=== PATIENT | female | born 1990 | race African-American/Black ===

== ENCOUNTER → 2017-10-31 | Outpatient (CLI) | payer BC ==
[2015-11-19 22:43] VITALS: BP 139/86
[~2017-10-31] MED LIST: CONTRAST GIVEN MC PRN; IOHEXOL 240 MG/ML 50ML VIAL. PO ONE; IOHEXOL 300 MG/ML 100ML VIAL. IV ONE
--- NOTE | 2017-10-31 10:32 | RAD ---
Indication: Menorrhagia. Axial imaging through the pelvis was performed after the administration of intravenous contrast. Comparison is made with prior CT from 11/19/2015. The small and large bowel loops in the pelvis are unremarkable. Bladder is decompressed. Uterus is grossly unremarkable. There appear to be low densities within both ovaries suggestive of cysts. On the right this measures 1.5 cm and on the left 1.9 cm. No free fluid is seen. No inguinal or iliac lymphadenopathy is seen. Impression: Probable small bilateral ovarian cysts. This could be further assessed on pelvic sonography. The study is otherwise unremarkable. PQRS Compliance Statement: One or more of the following individualized dose reduction techniques were utilized for this examination: 1. Automated exposure control 2. Adjustment of the mA and/or kV according to patient size 3. Use of iterative reconstruction technique
== END | disposition home or self-care (01) ==
LOC: CT 08:32
DX: N92.0 Excessive and frequent menstruation with regular cycle (principal)
CPT/HCPCS: 74170; Q9966; Q9967

== ENCOUNTER 2018-02-23 19:17 | Emergency (ER) | payer BC ==
[2018-02-23 19:38] LABS: URINE HCG POC HCG NEGATIVE (Negative)
[2018-02-23 20:19] LABS: ADD MAN DIFF? NO
[2018-02-23 20:24] LABS: BASO % 1 % (0-3); EOS # 0.1 x10^3/uL (0.0-0.7); EOS % 1 % (0-3); HEMATOCRIT 41.4 % (36.0-47.0); HEMOGLOBIN 13.7 g/dL (12.0-15.5); LYMPH # 2.1 x10^3/uL (1.0-4.8); LYMPH % 25 % (24-48); MEAN CORPUSCULAR HEMOGLOBIN 29 pg (25-35); MEAN CORPUSCULAR HGB CONC 33 g/dL (31-37); MEAN CORPUSCULAR VOLUME 86 fL (79-100); MONO # 0.5 x10^3/uL (0.0-1.1); MONO % 6 % (0-9); NEUT # 5.7 x10^3uL (1.8-7.7); NEUT % 67 % (31-73); PLATELET COUNT 282 x10^3/uL (140-400); RED CELL DISTRIBUTION WIDTH 14.1 % (11.5-14.5); WHITE BLOOD COUNT 8.4 x10^3/uL (4.0-11.0)
[2018-02-23] MEDS: MAG HYDROX/ALUMINUM HYD/SIMETH 30 ML ORAL.SUSP PO (20:34)
[2018-02-23 20:35] LABS: ANION GAP 12 (6-14); BLOOD UREA NITROGEN 15 mg/dL (7-20); BUN/CREATININE RATIO 19 (6-20); CALCIUM 8.9 mg/dL (8.5-10.1); CARBON DIOXIDE 24 mmol/L (21-32); CHLORIDE 104 mmol/L (98-107); CREATININE 0.8 mg/dL (0.6-1.0); GFR 105.8; GLUCOSE 96 mg/dL (70-99); SODIUM 140 mmol/L (136-145)
[2018-02-23 20:44] LABS: ALBUMIN 3.6 g/dL (3.4-5.0); ALBUMIN/GLOBULIN RATIO 0.8 (1.0-1.7); ALK PHOS 56 U/L (46-116); ALT (SGPT) 32 U/L (14-59); AST (SGOT) 31 U/L (15-37); LIPASE 272 U/L (73-393); TOTAL BILIRUBIN 0.3 mg/dL (0.2-1.0); TOTAL PROTEIN 7.9 g/dL (6.4-8.2)
[2018-02-23] MEDS: LIDO:MAALOX:DONNATAL 1:1:1 15 ML SINGLE DOSE SWSW (22:35)
== END 2018-02-23 22:40 | disposition home or self-care (01) ==
LOC: ER 19:17
DX: R10.13 Epigastric pain (principal); K21.9 Gastro-esophageal reflux disease without esophagitis; G89.29 Other chronic pain; Z87.442 Personal history of urinary calculi; Z87.440 Personal history of urinary (tract) infections
CPT/HCPCS: 36415; 80053; 81025; 83690; 85025; 99284

== ENCOUNTER → 2018-05-22 | Outpatient (CLI) | payer OTHER | END | disposition home or self-care (01) | LOC: KCIC US 07:52 | DX: K76.0 Fatty (change of) liver, not elsewhere classified (principal); K21.9 Gastro-esophageal reflux disease without esophagitis; Z87.442 Personal history of urinary calculi | CPT/HCPCS: 76705 ==

== ENCOUNTER → 2018-06-13 | Outpatient (CLI) | payer OTHER ==
[2018-06-13] MEDS: SINCALIDE 2 MCG in IV NORMAL SALINE 50ML 30 ML IV (10:18)
== END | disposition home or self-care (01) ==
LOC: NM 09:51
DX: R10.13 Epigastric pain (principal)
CPT/HCPCS: 78226; 96374; 96375; A9537; J2805

== ENCOUNTER 2019-10-27 15:37 | Emergency (ER) | payer BC, OTHER ==
[~2019-10-27] VITALS: Ht 172.7 cm; Wt 104.3 kg
[~2019-10-27 15:37] MED LIST changes: -CONTRAST GIVEN MC PRN; +HYDR-3164 PO; -IOHEXOL 240 MG/ML 50ML VIAL. PO ONE; -IOHEXOL 300 MG/ML 100ML VIAL. IV ONE; +lidocaine; +lidocaine viscous PO
[2019-10-27] MEDS ORDERED: diphenhydrAMINE 50 MG/ML VIAL IVP STA (16:36)
[2019-10-27] MEDS ORDERED: KETOROLAC 15 MG/ML VIAL. IV STA (16:36)
[2019-10-27] MEDS ORDERED: LIDOCAINE 2% 20 ML VIAL. IJ STA (16:36)
--- NOTE | 2019-10-27 16:41 | PHYS DOC ---
Past Medical History Past Medical History: GERD, Kidney Stone, UTI, Other Additional Past Medical Histor: chronic left neck and arm pain- muscles spasms Past Surgical History: Other Additional Past Surgical Histo: knee repair x5 Alcohol Use: None Drug Use: None Adult General Chief Complaint Chief Complaint: HEADACHE HPI HPI Patient is a 29 year old female who presents with headache this been ongoing for last several days. The headache has associated symptoms include nausea, light sensitivity, noise sensitivity she also states she's been having little bit of left-sided numbness on her face. Rates the numbness started 2 days ago. She rates her pain a 7 out of 10 in severity and sharp. Review of Systems Review of Systems Constitutional: Denies fever or chills [] Eyes: Reports light and noise sensitivity. Denies change in visual acuity, redn ess, or eye pain [] HENT: Denies nasal congestion or sore throat [] Respiratory: Denies cough or shortness of breath [] Cardiovascular: No additional information not addressed in HPI [] GI: Reports nausea. Denies abdominal pain, vomiting, bloody stools or diarrhea [] : Denies dysuria or hematuria [] Musculoskeletal: Denies back pain or joint pain [] Integument: Denies rash or skin lesions [] Neurologic: Reports headache, focal weakness or sensory changes [] Endocrine: Denies polyuria or polydipsia [] Complete systems were reviewed and found to be within normal limits, except as documented in this note. Current Medications Current Medications Current Medications Medications (Trade) Dose Ordered Sig/Justo Start Time Stop Time Status Last Admin Dose Admin Diphenhydramine HCl (Benadryl) 50 mg 1X STAT 10/27/19 16:36 10/27/19 16:39 DC 10/27/19 16:56 50 MG Ketorolac Tromethamine (Toradol 15mg Vial) 10 mg 1X STAT 10/27/19 16:36 10/27/19 16:39 DC 10/27/19 16:56 10 MG Lidocaine HCl 20 ml 1X STAT 10/27/19 16:36 10/27/19 16:39 DC 10/27/19 16:57 20 ML Prochlorperazine Edisylate (Compazine) 10 mg 1X ONCE 10/27/19 16:45 10/27/19 16:46 DC 10/27/19 16:56 10 MG Sodium Chloride 1,000 ml @ 1,000 mls/hr 1X ONCE 10/27/19 16:45 10/27/19 17:44 10/27/19 16:55 1,000 MLS/HR Allergies Allergies Allergies Coded Allergies Type Severity Reaction Last Updated Verified No Known Drug Allergies 11/07/13 No Physical Exam Physical Exam Constitutional: Well developed, well nourished, no acute distress, non-toxic appearance. [] HENT: Normocephalic, atraumatic, bilateral external ears normal, oropharynx luci st, no oral exudates, nose normal. [] Eyes: PERRLA, EOMI, conjunctiva normal, no discharge. [] Neck: Normal range of motion, no tenderness, supple, no stridor. [] Cardiovascular:Heart rate regular rhythm, no murmur [] Lungs & Thorax: Bilateral breath sounds clear to auscultation [] Skin: Warm, dry, no erythema, no rash. [] Neurologic: Alert and oriented X 3, normal motor function, normal sensory function, no focal deficits noted. [] Psychologic: Affect normal, judgement normal, mood normal. [] Current Patient Data Vital Signs Vital Signs Date Time Temp Pulse Resp B/P (MAP) Pulse Ox O2 Delivery O2 Flow Rate FiO2 10/27/19 16:45 65 99 10/27/19 16:06 98.9 16 130/88 (102) Room Air 98.9 EKG EKG [] Radiology/Procedures Radiology/Procedures [] Course & Med Decision Making Course & Med Decision Making Pertinent Labs and Imaging studies reviewed. (See chart for details) Will give Intranasal lidocaine, compazine, benadryl, and toradol. Will see if symptoms improve. Symptoms have improved with treatment down to a 10. Will d/c home. Recommended to go see a neurologist. Will also write a script for fioricet. Krystalon Disclaimer Dragon Disclaimer This electronic medical record was generated, in whole or in part, using a voice recognition dictation system. Departure Departure Impression: Primary Impression: Migraine Disposition: HOME, SELF-CARE Condition: STABLE Referrals: JACI LARSON (PCP) Patient Instructions: Migraine Headache Additional Instructions: Thank you for visiting [facility]. We appreciate you trusting us with your care. If any additional problems come up don't hesitate to return to visit us. Please follow up with your primary care provider so they can plan additional care if needed and know about the problem that you had. If symptoms worsen come back to the Emergency Department. Any concerning symptoms that start such as chest pain, shortness of air, weakness or numbness on one side of the body, running high fevers or any other concerning symptoms return to the ER. Scripts Butalbital/Aspirin/Caffeine ([id number] 50-325-40) 1 Each Tablet 1 TAB PO PRN DAILY PRN for headache MDD 1 Tablet(s) for 15 Days, #15 TAB 0 Refills Prov: KIANA BEAUCHAMP APRN 10/27/19 Problem Qualifiers Primary Impression: Migraine Migraine type: with aura Status migrainosus presence: without status migrainosus Intractability: not intractable Qualified Codes: G43.109 - Migraine with aura, not intractable, without status migrainosus KIANA BEAUCHAMP APRN Oct 27, 2019 16:41
[2019-10-27] MEDS ORDERED: IV NORMAL SALINE 1000ML BAG 1,000 ML IV ONE (16:45)
[2019-10-27] MEDS ORDERED: PROCHLORPERAZINE 10 MG/2 ML VIAL. IV ONE (16:45)
[2019-10-27] MEDS ORDERED: BUTALB/APAP/CAFEIN 50/325/40MG TABLET. PO STA (17:40)
[2019-10-27] MEDS ORDERED: BUTA-177 PO (17:41)
[2019-10-27 17:43] VITALS: BP 141/94
== END 2019-10-27 17:48 | disposition home or self-care (01) ==
LOC: ER 15:37
DX: G43.109 Migraine with aura, not intractable, without status migrainosus (principal); K21.9 Gastro-esophageal reflux disease without esophagitis; G89.29 Other chronic pain; N39.0 Urinary tract infection, site not specified; Z98.890 Other specified postprocedural states; Z87.442 Personal history of urinary calculi; Z79.899 Other long term (current) drug therapy
CPT/HCPCS: 96372; 96374; 96375; 99284; J0780; J1200; J1885; J2001; J7030

== ENCOUNTER 2019-12-16 17:58 | Emergency (ER) | payer BC ==
[~2019-12-16] VITALS: Ht 170.2 cm; Wt 102.2 kg
[~2019-12-16 17:58] MED LIST changes: +BUTA-177 PO
--- NOTE | 2019-12-16 18:45 | PHYS DOC ---
Past Medical History Past Medical History: GERD, Kidney Stone, UTI, Other Additional Past Medical Histor: chronic left neck and arm pain- muscles spasms Past Surgical History: Other Additional Past Surgical Histo: knee repair x5 Smoking Status: Never Smoker Alcohol Use: None Drug Use: None Adult General Chief Complaint Chief Complaint: ABDOMINAL PAIN HPI HPI 29-year-old female presents to the emergency Department complaints of left upper quadrant pain, she states radiates to her back. This has been ongoing off and on times one month. She was recently treated with antibiotic therapy for urinary tract infection, Escherichia coli states she's been off abx for approximately 1- 2 weeks. She does describe some nausea as well as vomiting. Decreased oral intake. Pain is described as achy sensation. She thinks that it may worsen with by mouth intake however unsure. Patient denies chest pain, headache, SOB on exam. Review of Systems Review of Systems Constitutional: chills Respiratory: Denies cough or shortness of breath [] Cardiovascular: No additional information not addressed in HPI [] GI: LUQ pain, nausea, vomiting, no bloody stools or diarrhea [] : Denies dysuria or hematuria [] Musculoskeletal: radiation of luq pain to back Integument: Denies rash or skin lesions [] Neurologic: Denies headache, focal weakness or sensory changes [] All other systems were reviewed and found to be within normal limits, except as documented in this note. Current Medications Current Medications Current Medications Medications (Trade) Dose Ordered Sig/Justo Start Time Stop Time Status Last Admin Dose Admin Info (CONTRAST GIVEN -- Rx MONITORING) 1 each PRN DAILY PRN 12/16/19 21:15 12/18/19 21:14 Iohexol (Omnipaque 300 Mg/ml) 75 ml 1X ONCE 12/16/19 21:15 12/16/19 21:16 DC 12/16/19 21:08 75 ML Ketorolac Tromethamine (Toradol 30mg Vial) 30 mg 1X ONCE 12/16/19 21:30 12/16/19 21:31 DC Allergies Allergies Allergies Coded Allergies Type Severity Reaction Last Updated Verified No Known Drug Allergies 11/07/13 No Physical Exam Physical Exam Constitutional: Well developed, well nourished, no acute distress, non-toxic appearance. [] HENT: Normocephalic, atraumatic, bilateral external ears normal, oropharynx luci st, no oral exudates, nose normal. [] Cardiovascular:Heart rate regular rhythm, no murmur [] Lungs & Thorax: Bilateral breath sounds clear to auscultation [] Abdomen: Bowel sounds normal, soft, TTP LUQ, no masses, no pulsatile masses. [] Skin: Warm, dry, no erythema, no rash. [] Back: No tenderness, no CVA tenderness. [] Extremities: No tenderness, no edema. [] Neurologic: Alert and oriented X 3, no focal deficits noted. [] Psychologic: Affect normal, judgement normal, mood normal. [] Current Patient Data Vital Signs Vital Signs Date Time Temp Pulse Resp B/P (MAP) Pulse Ox O2 Delivery O2 Flow Rate FiO2 12/16/19 18:47 98.1 84 16 134/83 (100) 100 Room Air 98.1 Lab Values Laboratory Tests Test 12/16/19 18:30 12/16/19 19:20 Urine Collection Type Unknown Urine Color Yellow Urine Clarity Clear Urine pH 6.0 Urine Specific [place] 1.020 Urine Protein Negative mg/dL (NEG-TRACE) Urine Glucose (UA) Negative mg/dL (NEG) Urine Ketones (Stick) Negative mg/dL (NEG) Urine Blood Negative (NEG) Urine Nitrite Negative (NEG) Urine Bilirubin Negative (NEG) Urine Urobilinogen Dipstick 0.2 mg/dL (0.2 mg/dL) Urine Leukocyte Esterase Small (NEG) Urine RBC 0 /HPF (0-2) Urine WBC 5-10 /HPF (0-4) Urine Squamous Epithelial Cells Mod /LPF Urine Bacteria Moderate /HPF (0-FEW) Urine Mucus Mod /LPF Urine Test Negative (NEG) White Blood Count 7.2 x10^3/uL (4.0-11.0) Red Blood Count 4.69 x10^6/uL (3.50-5.40) Hemoglobin 13.7 g/dL (12.0-15.5) Hematocrit 40.1 % (36.0-47.0) Mean Corpuscular Volume 86 fL (79-100) Mean Corpuscular Hemoglobin 29 pg (25-35) Mean Corpuscular Hemoglobin Concent 34 g/dL (31-37) Red Cell Distribution Width 12.4 % (11.5-14.5) Platelet Count 250 x10^3/uL (140-400) Neutrophils (%) (Auto) 55 % (31-73) Lymphocytes (%) (Auto) 37 % (24-48) Monocytes (%) (Auto) 6 % (0-9) Eosinophils (%) (Auto) 1 % (0-3) Basophils (%) (Auto) 1 % (0-3) Neutrophils # (Auto) 3.9 x10^3/uL (1.8-7.7) Lymphocytes # (Auto) 2.7 x10^3/uL (1.0-4.8) Monocytes # (Auto) 0.4 x10^3/uL (0.0-1.1) Eosinophils # (Auto) 0.1 x10^3/uL (0.0-0.7) Basophils # (Auto) 0.0 x10^3/uL (0.0-0.2) Sodium Level 142 mmol/L (136-145) Potassium Level 3.7 mmol/L (3.5-5.1) Chloride Level 105 mmol/L (98-107) Carbon Dioxide Level 28 mmol/L (21-32) Anion Gap 9 (6-14) Blood Urea Nitrogen 8 mg/dL (7-20) Creatinine 0.8 mg/dL (0.6-1.0) Estimated GFR (Cockcroft-Gault) 104.1 BUN/Creatinine Ratio 10 (6-20) Glucose Level 107 mg/dL (70-99) H Calcium Level 8.7 mg/dL (8.5-10.1) Total Bilirubin 0.1 mg/dL (0.2-1.0) L Aspartate Amino Transferase (AST) 15 U/L (15-37) Alanine Aminotransferase (ALT) 21 U/L (14-59) Alkaline Phosphatase 57 U/L (46-116) Total Protein 6.8 g/dL (6.4-8.2) Albumin 3.5 g/dL (3.4-5.0) Albumin/Globulin Ratio 1.1 (1.0-1.7) Lipase 228 U/L (73-393) Laboratory Tests 12/16/19 19:20 Laboratory Tests 12/16/19 19:20 EKG EKG [] Radiology/Procedures Radiology/Procedures [facility] [address] [place] [address] IMAGING REPORT Signed PATIENT: RAÚL PAN ACCOUNT: [id number] : 1990 LOCATION: ER AGE: 29 SEX: F EXAM STATUS: REG ER ORD. PHYSICIAN: BARTOLO GLYNN MD REASON: left upper quadrant pain PROCEDURE: CT ABD PELV W/ IV CONTRST ONLY EXAM: CT Abdomen and Pelvis with IV contrast CLINICAL HISTORY: Left upper quadrant pain. COMPARISON: 10/31/2017 TECHNIQUE: Helical CT of the abdomen and pelvis was performed following the administration of intravenous contrast. Axial, coronal and sagittal reformatted images were generated. PQRS compliance statement - One or more of the following individualized dose reduction techniques were utilized for this study: 1. Automated exposure control 2. Adjustment of the mA and/or kV according to patient size 3. Use of iterative reconstruction technique FINDINGS: Lower chest: Linear reticular opacities in the right lower lobe likely scarring/atelectasis. Abdomen and Pelvis: No focal liver lesion. High density material dependently within the gallbladder likely sludge. No biliary ductal dilatation. Spleen is unremarkable. Adrenal glands and pancreas are unremarkable. Symmetric nephrograms. No focal renal lesion. No hydronephrosis. Appendix is normal. No small or large bowel dilatation. Large volume colonic stool content. Appendix is normal. No abdominal pelvic ascites. No abdominal pelvic lymphadenopathy. Small fat-containing periumbilical hernia is seen. Mild bladder wall thickening, likely cystitis. Bones: Leftward curvature of the lumbar spine IMPRESSION: 1. Large volume colonic stool content. No bowel obstruction. 2. Appendix is normal. 3. No abdominal or pelvic ascites. Electronically signed by: Zay Duncan MD (12/16/2019 9:40 PM) [id number] DICTATED and SIGNED BY: ZAY DUNCAN MD DATE: 12/16/192139 [] Course & Med Decision Making Course & Med Decision Making Pertinent Labs and Imaging studies reviewed. (See chart for details) [] 29-year-old female presents to the emergency Department complaints of left upper quadrant pain, she states radiates to her back. This has been ongoing off and on times one month. She was recently treated with antibiotic therapy for urinary tract infection, Escherichia coli states she's been off abx for approximately 1-2 weeks. She does describe some nausea as well as vomiting. Decreased oral intake. Pain is described as achy sensation. She thinks that it may worsen with by mouth intake however unsure. Patient denies chest pain, headache, SOB on exam. Labs/Imaging reviewed CT without acute findings aside from constipation Recommend miralax OTC Recommend bentyl as needed Dragon Disclaimer Dragon Disclaimer This electronic medical record was generated, in whole or in part, using a voice recognition dictation system. Departure Departure Impression: Primary Impression: Abdominal pain Disposition: HOME, SELF-CARE Condition: IMPROVED Referrals: JACI LARSON (PCP) Patient Instructions: Abdominal Pain (Nonspecific), Constipation, Adult, Eas y-to-Read Additional Instructions: Recommend follow up with PCP 3 - 5 days Return to the ER with worsening symptoms, intractable pain, fever, altered mental status Tylenol/Motrin as needed for pain Take new medications as directed CT without findings of infection on exam, + constipation Scripts Dicyclomine Hcl (DICYCLOMINE HCL) 10 Mg Capsule 1 CAP PO TID for 5 Days, #15 CAP 0 Refills Prov: BARTOLO GLYNN MD 12/16/19 Problem Qualifiers Primary Impression: Abdominal pain Abdominal location: left upper quadrant Qualified Codes: R10.12 - Left upper quadrant pain BARTOLO GLYNN MD Dec 16, 2019 18:45
[2019-12-16 18:53] LABS: BILIRUBIN,URINE NEGATIVE (NEG); CLARITY,URINE CLEAR; COLOR,URINE YELLOW; NITRITE,URINE NEGATIVE (NEG); PROTEIN,URINE NEGATIVE (NEG-TRACE); UROBILINOGEN,URINE 0.2 mg/dL (0.2 mg/dL)
[2019-12-16 18:55] LABS: U PREG PATIENT NEGATIVE (NEG)
[2019-12-16 19:00] LABS: BACTERIA,URINE MODERATE /HPF (0-FEW); RBC,URINE 0 /HPF (0-2); SQUAMOUS EPITHELIAL CELL,UR MOD /LPF
[2019-12-16 19:27] LABS: BASO % 1 % (0-3); EOS # 0.1 x10^3/uL (0.0-0.7); EOS % 1 % (0-3); HEMATOCRIT 40.1 % (36.0-47.0); HEMOGLOBIN 13.7 g/dL (12.0-15.5); LYMPH # 2.7 x10^3/uL (1.0-4.8); LYMPH % 37 % (24-48); MEAN CORPUSCULAR HEMOGLOBIN 29 pg (25-35); MEAN CORPUSCULAR HGB CONC 34 g/dL (31-37); MEAN CORPUSCULAR VOLUME 86 fL (79-100); MONO # 0.4 x10^3/uL (0.0-1.1); MONO % 6 % (0-9); NEUT # 3.9 x10^3/uL (1.8-7.7); NEUT % 55 % (31-73); PLATELET COUNT 250 x10^3/uL (140-400); RED BLOOD COUNT 4.69 x10^6/uL (3.50-5.40); RED CELL DISTRIBUTION WIDTH 12.4 % (11.5-14.5); WHITE BLOOD COUNT 7.2 x10^3/uL (4.0-11.0)
[2019-12-16 19:38] LABS: CALCIUM 8.7 mg/dL (8.5-10.1); CREATININE 0.8 mg/dL (0.6-1.0); GFR 104.1; POTASSIUM 3.7 mmol/L (3.5-5.1)
[2019-12-16 19:44] LABS: ALBUMIN 3.5 g/dL (3.4-5.0); ALBUMIN/GLOBULIN RATIO 1.1 (1.0-1.7); TOTAL BILIRUBIN 0.1 mg/dL (0.2-1.0); TOTAL PROTEIN 6.8 g/dL (6.4-8.2)
[2019-12-16] MEDS ORDERED: CONTRAST GIVEN. MC PRN (21:15)
[2019-12-16] MEDS ORDERED: IOHEXOL 300 MG/ML 100ML VIAL. IV ONE (21:15)
[2019-12-16] MEDS ORDERED: KETOROLAC 30 MG/ML VIAL. IVP ONE (21:30)
--- NOTE | 2019-12-16 21:43 | RAD ---
EXAM: CT Abdomen and Pelvis with IV contrast CLINICAL HISTORY: Left upper quadrant pain. COMPARISON: 10/31/2017 TECHNIQUE: Helical CT of the abdomen and pelvis was performed following the administration of intravenous contrast. Axial, coronal and sagittal reformatted images were generated. PQRS compliance statement - One or more of the following individualized dose reduction techniques were utilized for this study: 1. Automated exposure control 2. Adjustment of the mA and/or kV according to patient size 3. Use of iterative reconstruction technique FINDINGS: Lower chest: Linear reticular opacities in the right lower lobe likely scarring/atelectasis. Abdomen and Pelvis: No focal liver lesion. High density material dependently within the gallbladder likely sludge. No biliary ductal dilatation. Spleen is unremarkable. Adrenal glands and pancreas are unremarkable. Symmetric nephrograms. No focal renal lesion. No hydronephrosis. Appendix is normal. No small or large bowel dilatation. Large volume colonic stool content. Appendix is normal. No abdominal pelvic ascites. No abdominal pelvic lymphadenopathy. Small fat-containing periumbilical hernia is seen. Mild bladder wall thickening, likely cystitis. Bones: Leftward curvature of the lumbar spine IMPRESSION: 1. Large volume colonic stool content. No bowel obstruction. 2. Appendix is normal. 3. No abdominal or pelvic ascites. Electronically signed by: Zay Canada MD (12/16/2019 9:40 PM) [id number]
[2019-12-16] MEDS ORDERED: DICY10CA3 PO (21:57)
[2019-12-16 22:11] VITALS: BP 108/65
== END 2019-12-16 22:30 | disposition home or self-care (01) ==
LOC: ER 17:58
DX: R10.12 Left upper quadrant pain (principal); R11.2 Nausea with vomiting, unspecified; K21.9 Gastro-esophageal reflux disease without esophagitis; G89.29 Other chronic pain; Z98.890 Other specified postprocedural states; Z87.442 Personal history of urinary calculi
CPT/HCPCS: 36415; 74177; 80053; 81001; 81025; 83690; 85025; 87086; 96374; 99285; J1885; Q9967

== ENCOUNTER 2021-02-07 15:23 | Emergency (ER) | payer BC, OTHER ==
[~2021-02-07] VITALS: Ht 170.2 cm; Wt 10.4 kg
[~2021-02-07 15:23] MED LIST changes: +DICY10CA3 PO
[2021-02-07 16:28] LABS: BASO % 0 % (0-3); EOS # 0.1 x10^3/uL (0.0-0.7); EOS % 2 % (0-3); HEMOGLOBIN 13.4 g/dL (12.0-15.5); LYMPH # 1.3 x10^3/uL (1.0-4.8); LYMPH % 20 % (24-48); MEAN CORPUSCULAR HEMOGLOBIN 29 pg (25-35); MEAN CORPUSCULAR HGB CONC 34 g/dL (31-37); MEAN CORPUSCULAR VOLUME 86 fL (79-100); MONO # 0.3 x10^3/uL (0.0-1.1); MONO % 5 % (0-9); NEUT # 4.6 x10^3/uL (1.8-7.7); NEUT % 73 % (31-73); PLATELET COUNT 257 x10^3/uL (140-400); RED BLOOD COUNT 4.65 x10^6/uL (3.50-5.40); RED CELL DISTRIBUTION WIDTH 12.6 % (11.5-14.5); WHITE BLOOD COUNT 6.4 x10^3/uL (4.0-11.0)
[2021-02-07 16:30] LABS: BILIRUBIN,URINE NEGATIVE (NEG); CLARITY,URINE CLEAR; COLOR,URINE AMBER; NITRITE,URINE NEGATIVE (NEG); PH,URINE 6.5 (<5.0-8.0); PROTEIN,URINE NEGATIVE (NEG-TRACE)
[2021-02-07 16:37] LABS: RBC,URINE >40 /HPF (0-2)
[2021-02-07 16:39] LABS: BACTERIA,URINE 0 /HPF (0-FEW)
[2021-02-07 17:09] LABS: CALCIUM 8.4 mg/dL (8.5-10.1); CREATININE 0.9 mg/dL (0.6-1.0); GFR 90.2; POTASSIUM 3.9 mmol/L (3.5-5.1)
[2021-02-07 17:15] LABS: ALBUMIN 3.4 g/dL (3.4-5.0); ALBUMIN/GLOBULIN RATIO 0.9 (1.0-1.7); TOTAL BILIRUBIN 0.4 mg/dL (0.2-1.0); TOTAL PROTEIN 7.1 g/dL (6.4-8.2)
--- NOTE | 2021-02-07 17:23 | ED.ADGEN ---
Past Medical History Past Medical History: Anxiety, Asthma, GERD, Other Additional Past Medical Histor: CHRONIC NECK Past Surgical History: Cholecystectomy Additional Past Surgical Histo: KNEE SURGERY Smoking Status: Never Smoker Alcohol Use: Occasionally Drug Use: None General Adult EDM: Chief Complaint: ABDOMINAL PAIN HPI: HPI: Patient is a 30-year-old female who presents to the emergency room complaining of chronic left upper quadrant abdominal pain. She states that this is been always there for the last several months. It does get worse and get better. It got a lot worse last night so she came to the emergency room today. She has been seen for this previously in December. She also is seeing Dr. Leiva for this. She had an EGD done last Saturday that reportedly was normal. Patient Has Intermittent Diarrhea and Nausea. She Denies Any Other Complaints. Review of Systems: Review of Systems: Complete ROS is negative unless otherwise documented in HPI Allergies: Allergies: Allergies Coded Allergies Type Severity Reaction Last Updated Verified No Known Drug Allergies 11/07/13 No Physical Exam: PE: General: Awake, alert, NAD. Well Nourished, well hydrated. Cooperative HEENT: Atraumatic, EOMI, PERRL, airway patent, moist oral mucosa Neck: Supple, trachea midline Respiratory: CTA bilaterally, normal effort, no wheezing/crackles CV: RRR, no murmur, cap refill <2 GI: Soft, nondistended, nontender, no masses MSK: No obvious deformities Skin: Warm, dry, intact Neuro: A&O x3, speech NL, sensory and motor grossly intact, no focal deficits Psych: Normal affect, normal mood, not suicidal or homicidal Current Patient Data: Labs: Laboratory Tests Test 02/07/21 15:55 02/07/21 16:10 02/07/21 16:21 Urine Collection Type Unknown Urine Color [place] Urine Clarity Clear Urine pH 6.5 (<5.0-8.0) Urine Specific [place] 1.025 (1.000-1.030) Urine Protein Negative mg/dL (NEG-TRACE) Urine Glucose (UA) Negative mg/dL (NEG) Urine Ketones (Stick) Negative mg/dL (NEG) Urine Blood Large (NEG) Urine Nitrite Negative (NEG) Urine Bilirubin Negative (NEG) Urine Urobilinogen Dipstick 1.0 mg/dL (0.2 mg/dL) Urine Leukocyte Esterase Small (NEG) Urine RBC >40 /HPF (0-2) Urine WBC 5-10 /HPF (0-4) Urine Squamous Epithelial Cells Few /LPF Urine Bacteria 0 /HPF (0-FEW) Urine Mucus Mod /LPF White Blood Count 6.4 x10^3/uL (4.0-11.0) Red Blood Count 4.65 x10^6/uL (3.50-5.40) Hemoglobin 13.4 g/dL (12.0-15.5) Hematocrit 40.0 % (36.0-47.0) Mean Corpuscular Volume 86 fL (79-100) Mean Corpuscular Hemoglobin 29 pg (25-35) Mean Corpuscular Hemoglobin Concent 34 g/dL (31-37) Red Cell Distribution Width 12.6 % (11.5-14.5) Platelet Count 257 x10^3/uL (140-400) Neutrophils (%) (Auto) 73 % (31-73) Lymphocytes (%) (Auto) 20 % (24-48) L Monocytes (%) (Auto) 5 % (0-9) Eosinophils (%) (Auto) 2 % (0-3) Basophils (%) (Auto) 0 % (0-3) Neutrophils # (Auto) 4.6 x10^3/uL (1.8-7.7) Lymphocytes # (Auto) 1.3 x10^3/uL (1.0-4.8) Monocytes # (Auto) 0.3 x10^3/uL (0.0-1.1) Eosinophils # (Auto) 0.1 x10^3/uL (0.0-0.7) Basophils # (Auto) 0.0 x10^3/uL (0.0-0.2) Sodium Level 143 mmol/L (136-145) Potassium Level 3.9 mmol/L (3.5-5.1) Chloride Level 107 mmol/L (98-107) Carbon Dioxide Level 25 mmol/L (21-32) Anion Gap 11 (6-14) Blood Urea Nitrogen 7 mg/dL (7-20) Creatinine 0.9 mg/dL (0.6-1.0) Estimated GFR (Cockcroft-Gault) 90.2 BUN/Creatinine Ratio 8 (6-20) Glucose Level 94 mg/dL (70-99) Calcium Level 8.4 mg/dL (8.5-10.1) L Total Bilirubin 0.4 mg/dL (0.2-1.0) Aspartate Amino Transferase (AST) 22 U/L (15-37) Alanine Aminotransferase (ALT) 35 U/L (14-59) Alkaline Phosphatase 67 U/L (46-116) Total Protein 7.1 g/dL (6.4-8.2) Albumin 3.4 g/dL (3.4-5.0) Albumin/Globulin Ratio 0.9 (1.0-1.7) L Lipase 141 U/L (73-393) POC Urine HCG, Qualitative Hcg negative (Negative) Laboratory Tests 02/07/21 16:10 Laboratory Tests 02/07/21 16:10 Vital Signs: Vital Signs Date Time Temp Pulse Resp B/P (MAP) Pulse Ox O2 Delivery O2 Flow Rate FiO2 02/07/21 18:58 72 17 130/72 (91) 96 Room Air 02/07/21 15:45 97.5 97.5 EKG: EKG: [] Heart Score: C/O Chest Pain: N/A Risk Factors: Risk Factors: DM, Current or recent (<one month) smoker, HTN, HLP, family history of CAD, obesity. Risk Scores: Score 0 - 3: 2.5% MACE over next 6 weeks - Discharge Home Score 4 - 6: 20.3% MACE over next 6 weeks - Admit for Clinical Observation Score 7 - 10: 72.7% MACE over next 6 weeks - Early Invasive Strategies Radiology/Procedures: Radiology/Procedures: [] Course & Med Decision Making: Course & Med Decision Making Pertinent Labs and Imaging studies reviewed. (See chart for details) Patient is a 30-year-old female presents to the emergency room complaining of chronic left upper quadrant abdominal pain. She is following with GI for this. Abdomen is soft, nontender. She does not have any signs of peritonitis. Acute abdominal series will be done to rule out any kind of free air. Abdominal lab work was done and is normal other than blood in her urine. Patient is currently on her menstrual cycle. Patient will follow up in GI clinic. Patient's test results and vitals while in the ED were fully reviewed and discussed with the patient. Patient is stable and at this time does not need admission to the hospital. We have discussed strict return precautions and the importance of following up with their Primary Care Physician. Patient stated understanding and was given an opportunity to ask any questions. Patient is in agreement with plan. Rancho Disclaimer: Rancho Disclaimer: This electronic medical record was generated, in whole or in part, using a voice recognition dictation system. Departure Departure Impression: Primary Impression: Abdominal pain Disposition: 01 DC HOME SELF CARE/HOMELESS Condition: STABLE Referrals: JACI LARSON (PCP) Patient Instructions: Abdominal Pain VINNY JACKSON MD Feb 07, 2021 17:23
--- NOTE | 2021-02-07 18:12 | RAD ---
EXAM: 2 VIEW ABDOMEN WITH ONE VIEW CHEST. HISTORY: Abdominal pain, recent endoscopy. COMPARISON: 09/07/2015. FINDINGS: A frontal view of the chest and supine/upright views of the abdomen are obtained. There are no confluent infiltrates. There is no pneumothorax or pleural effusion. The heart is not en larged. There is no pneumoperitoneum. There are no distended small bowel loops or significant air-fluid level s. There is gas distally. Cholecystectomy clips are noted. There is a mild S-shaped thoracolumbar sco liosis. IMPRESSION: 1. No confluent infiltrates. 2. No evidence of obstruction. Electronically signed by: Ministerio Orellana MD (02/07/2021 6:10 PM) [facility]
[2021-02-07 18:58] VITALS: BP 130/72
== END 2021-02-07 18:58 | disposition home or self-care (01) ==
LOC: ER 15:23
DX: R10.12 Left upper quadrant pain (principal); R19.7 Diarrhea, unspecified; R11.0 Nausea; F41.9 Anxiety disorder, unspecified; J45.909 Unspecified asthma, uncomplicated; K21.9 Gastro-esophageal reflux disease without esophagitis; Z90.49 Acquired absence of other specified parts of digestive tract; Z98.890 Other specified postprocedural states
CPT/HCPCS: 36415; 74022; 80053; 81001; 81025; 83690; 85025; 99283